=== PATIENT | male | born 1950 | race Caucasian/White ===

== ENCOUNTER 2019-01-17 06:39 | Inpatient (IN) | payer BC ==
--- NOTE | 2019-01-17 07:45 | PDOC ---
History of Present Illness - General Chief Complaint: Pain, Acute Stated Complaint: ABD PAIN Time Seen by Provider: 01/17/19 07:23 - History of Present Illness Initial Comments: Mr. Weaver is a 68 y/o male with PMH significant for HLD, DM, HTN, AAA (3.5 cm) , extensive ETOH and smoking, lumbar stenosis, presenting today with abdominal pain that started at 8pm yesterday. Reports nausea and several episodes of vomiting. Reports associated back pain. Describes the pain as sharp and intermittent. Denies dysuria/hematuria. Reports diarrhea, but denies blood in the stool. Denies chest pain/shortness of breath. Denies headache/dizziness. Past History - Past Medical History Allergies/Adverse Reactions: Allergies Allergy/AdvReac Type Severity Reaction Status Date / Time No Known Allergies Allergy Verified 01/17/19 06:52 Home Medications: Ambulatory Orders Atorvastatin Ca [Lipitor -] 20 mg PO HS tablet 09/10/13 Sitagliptin Phos/Metformin HCl [Janumet 50-1,000 Mg Tablet] 1 each PO BID tablet 09/10/13 Amlodipine Besylate/Benazepril [Amlodipine-Benazepril 10-20 mg] 1 each PO DAILY 01/17/19 Linaclotide [Linzess] 145 mcg PO DAILY 01/17/19 Sildenafil Citrate 100 mg PO PRN PRN 01/17/19 Valsartan/Hydrochlorothiazide [Valsartan-Hctz 160-12.5 mg Tab] 1 each PO DAILY 01/17/19 COPD: No Diabetes: Yes HTN: Yes - Psycho Social/Smoking Cessation Hx Smoking History: Never smoked Review of Systems - Review of Systems Comments:: GENERAL/CONSTITUTIONAL: No fever or chills. No weakness._ HEAD, EYES, EARS, NOSE AND THROAT: No change in vision. No change in hearing. No sore throat._ CARDIOVASCULAR: No chest pain or shortness of breath_ RESPIRATORY: Denies cough, hemoptysis_ GASTROINTESTINAL: Reports nausea, vomiting, and diarrhea. No constipation. Reports abdominal pain. GENITOURINARY: No dysuria, frequency, or change in urination._ MUSCULOSKELETAL: No joint or muscle swelling or pain. Reports lumbar paraspinal back pain. SKIN: No rash_ NEUROLOGIC: No headache, vertigo, loss of consciousness, or change in strength/ sensation._ ENDOCRINE: No increased thirst. No abnormal weight change_ HEMATOLOGIC/LYMPHATIC: No anemia, easy bleeding, or history of blood clots._ ALLERGIC/IMMUNOLOGIC: No hives or skin allergy._ *Physical Exam - Vital Signs Last Vital Signs Temp Pulse Resp BP Pulse Ox 98.5 F 116 H 20 153/110 H 100 01/17/19 06:52 01/17/19 07:38 01/17/19 07:38 01/17/19 07:38 01/17/19 07:38 - Physical Exam Comments: GENERAL: Awake, alert, and oriented to person/place/time, in no acute distress_ HEAD: No signs of trauma, normocephalic, atraumatic _ EYES: PERRLA, EOMI, sclera anicteric, conjunctiva clear_ ENT: Hearing grossly normal, nares patent, oropharynx clear without exudates. No uvular deviation. Moist mucosa_ NECK: Normal ROM, supple, no lymphadenopathy, JVD, or masses_ LUNGS: No distress, speaks in full sentences, clear to auscultation bilaterally _ HEART: Regular rate and rhythm, normal S1 and S2, no murmurs appreciated, peripheral pulses normal and equal bilaterally._ ABDOMEN: Soft, protuberant, diffuse TTP worse in the LUQ and LLQ. No guarding, no rebound. No masses appreciated. BACK: No midline TTP. No CVA tenderness. EXTREMITIES: Normal inspection, Normal range of motion, no edema. No clubbing or cyanosis_ NEUROLOGICAL: Cranial nerves II through XII grossly intact. Normal speech, normal gait, no focal sensorimotor deficits _ SKIN: Warm, Dry, normal turgor, no rashes or lesions noted_ ED Treatment Course - LABORATORY CBC & Chemistry Diagram: 01/17/19 07:53 01/17/19 07:53 Medical Decision Making - Medical Decision Making 01/17/19 07:43 68M hx of HTN HLD DM AAA ETOH tobacco lumbar stenosis presenting with abdominal pain and back pain that started at 8pm yesterday. -CBC, CMP, lipase -UA/UC -trop, EKG, CXR -pepcid/maalox -IV tylenol, zofran 01/17/19 08:00 EKG shows sinus tachycardia, 116 bpm, right axis deviation, no ST elevation/ depression, QTc 436. 01/17/19 10:27 Pt reassessed. Reports that pain had improved slightly but now returned. Reports gas and pressure like discomfort throughout the abdomen. Labs reviewed, WBC elevated at 15. -CT abd/pelv 01/17/19 12:16 CXR shows no acute intrathoracic process. CT abd/pelv shows development of diffuse small bowel dilatation as well as dilatation of the right colon, choledocholithiasis, and cholelithiasis. Patient reassessed. Reports that he was able to pass gas and that his pain has improved. Still has RUQ TTP. -US RUQ 01/17/19 15:56 RUQ US is limited but shows cholelithiasis and probable diffuse fatty infiltration of the liver. D/w Dr. Rosario (surgery). Given no hx of abdominal surgery, likely not a mechanical obstruction. Gallbladder does not appear inflammed, but given continued pain, Dr. Rosario's recommendations are rocephin and flagyl, HIDA scan , GI consult, surgery consult, and admission. 01/17/19 16:16 D/w Dr. Rob who accepts the patient for admission. Discharge - Discharge Information Problems reviewed: Yes Clinical Impression/Diagnosis: RUQ pain Condition: Stable - Admission Yes - Follow up/Referral - Patient Discharge Instructions - Post Discharge Activity
--- NOTE | 2019-01-17 07:48 | PDOC ---
Attending Attestation - Resident Resident Name: Ángel Tovar - ED Attending Attestation I have performed the following: I have examined & evaluated the patient, The case was reviewed & discussed with the resident, I agree w/resident's findings & plan, Exceptions are as noted - HPI HPI: 01/17/19 07:46 68y M hx of hl, dm, htn, incidendental AAA (3.5cm), hx of etoh abuse (dry for past 5 years), presents with abdominal pain that started last night that is described as sharp and intermittent associated with several episodes of nonbilious nonbloody vomiting. The patient notes that the pain also seems to radiate to the back there is no associated chest pain, shortness of breath, fever, chills, diarrhea, melena, BPR, dysuria. The patient does endorse having this pain in the past intermittently several times a month and was recently worked up for this with an MRI of the abdomen by his primary care doctor that revealed an incidental 3.5 cm AAA. The patient notes that sometimes these episodes come with eating certain foods. He notes that although this pain is similar to the previous episodes this is more severe than usual. Social: prior smoking and etoh (non in 5 years) PMD [place] Exam: GENERAL: The patient is awake, alert, and fully oriented, Nontoxic - in no acute distress. HEAD: Normocephalic, atraumatic. EYES: extraocular movements intact, sclera anicteric, conjunctiva clear. ENT: Normal voice, Moist mucous membranes. NECK: Normal range of motion, supple LUNGS: Breath sounds equal, clear to auscultation bilaterally. No wheezes, no rhonchi, no rales. HEART: tachycardic, normal S1 and S2 without murmur, rub or gallop. ABDOMEN: Soft, slightly distended abdomen, mild diffuse tenderness especially in the midline and epigastrium, no rebound or guarding, no CVA tenderness. No pain at McBurney's point and negative Sadler's. No signs of ecchymosis EXTREMITIES: Normal range of motion, no edema. NEUROLOGICAL: No facial assymetry, Normal speech, PSYCH: Normal mood, normal affect. SKIN: Warm, Dry, normal turgor, Differential for the patient's pain includes but is not limited to pancreatitis , gastritis, acid reflux, diverticulitis. Considered AAA as possible cause however he did have a recent MRI that showed only slight enlargement of his aorta. We will give the patient Pepcid, Maalox, Tylenol, fluids Will reassess consider possible imaging if his pain is not significantly improved - Physicial Exam PE: 01/17/19 14:59 see above - Medical Decision Making 01/17/19 10:11 The patient's lab work was reviewed there is a leukocytosis noted however the rest of his lab work was unremarkable including urine. Will obtain 01/17/19 15:[address] noted fo suggestion of possible obstruction +gall stones, unclear cause of his pain as pain is fairly diffuse but he does have RUQ ttp - will ishan armando anticipate admission for [facility] as pt is vomiting here. Heart Score/ECG Review - ECG Impressions Comment:: 01/17/19 08:20 Twelve-lead EKG was performed and reviewed by me. There is normal sinus rhythm with a rate of 116 Right superior axis deviation PVCs present Impression sinus tachycardia
[2019-01-17] MEDS ORDERED: ACETAMINOPHEN 1000 MG/100 ML VIAL (NON FORMULARY) IVPB ONE (07:49)
[2019-01-17] MEDS ORDERED: ACETAMINOPHEN INJECTION 100 ML IVPB ONE (07:58)
[2019-01-17] MEDS ORDERED: MAG HYDROX/AL HYDROX/SIMETH 30 ML UNIT-DOSE CUP PO ONE (07:58)
[2019-01-17] MEDS ORDERED: SODIUM CHLORIDE 0.9% 500 ML INFUS.BAG IV ONE ×2 (07:58→14:37)
[2019-01-17] MEDS ORDERED: FAMOTIDINE 10 MG TABLET PO ONE (07:58)
[2019-01-17] MEDS ORDERED: ONDANSETRON 4 MG/2 ML VIAL IVPB ONE (07:59)
[2019-01-17] MEDS ORDERED: FAMOTIDINE 10 MG TABLET ONE (08:05)
[2019-01-17] MEDS ORDERED: ONDANSETRON 4 MG/2 ML VIAL ONE ×2 (08:06→14:43)
[2019-01-17] MEDS ORDERED: MAG HYDROX/AL HYDROX/SIMETH 30 ML UNIT-DOSE CUP ONE (08:06)
[2019-01-17 08:46] LABS: EPI CELLS 2.2 /HPF (0-5/HPF); HYALINE CASTS 26 /lpf (0-8); PH,URINE 7.5 (5.0-8.0); URINE APPEARANCE CLEAR; URINE BACTERIA 5.1 /hpf (NEGATIVE); URINE BILIRUBIN 1+ (NEGATIVE); URINE COLOR DK YELLOW; URINE GLUCOSE (UA) TRACE (NEGATIVE); URINE KETONE 1+ (NEGATIVE); URINE LEUK ESTERASE TRACE (NEGATIVE); URINE NITRITE NEGATIVE (NEGATIVE); URINE PROTEIN 3+ (NEGATIVE); URINE RBC 4 /hpf (0-4); URINE WBC 1 /hpf (0-5)
[2019-01-17 08:57] LABS: BASO % 0.1 % (0-2.0); EOS % 0.1 % (0-4.5); HEMATOCRIT 45.2 % (35.4-49); HEMOGLOBIN 15.7 GM/dL (11.7-16.9); LYMPH % 6.9 % (8-40); MCHC 34.8 g/dl (32.0-35.9); MEAN CELL VOLUME 89.1 fl (80-96); MEAN PLT VOLUME 8.9 fl (7.5-11.1); MONO % 3.5 % (3.8-10.2); NEUT % 89.4 % (42.8-82.8); PLATELET COUNT 210 K/MM3 (134-434); RBC 5.07 M/mm3 (4.00-5.60)
[2019-01-17 08:59] LABS: ALBUMIN 4.3 g/dl (3.4-5.0); BILIRUBIN,TOTAL 0.6 mg/dL (0.2-1); CALCIUM 9.8 mg/dL (8.5-10.1); CREATININE 1.3 mg/dL (0.55-1.3); POTASSIUM 3.3 mmol/L (3.5-5.1)
--- NOTE | 2019-01-17 09:59 | EKG ---
Test Reason : Blood Pressure : / mmHG Vent. Rate : 116 BPM Atrial Rate : 116 BPM P-R Int : 160 ms QRS Dur : 112 ms QT Int : 314 ms P-R-T Axes : 002 246 -09 degrees QTc Int : 436 ms SINUS TACHYCARDIA WITH OCCASIONAL PREMATURE VENTRICULAR COMPLEXES NONSPECIFIC T WAVE ABNORMALITY ABNORMAL ECG WHEN COMPARED WITH ECG OF 04-JUL-2009 17:57, PREMATURE VENTRICULAR COMPLEXES ARE NOW PRESENT Confirmed by OTIS WILLAMS MD ([id number]) on 01/17/2019 9:59:14 AM Referred By: Confirmed By:OTIS WILLAMS MD
[2019-01-17] MEDS ORDERED: morphine CARPU-JECT 4 MG/1 ML DISP.SYRIN IVPUSH ONE (10:33)
[2019-01-17] MEDS ORDERED: morphine SULFATE 4 MG/ML VIAL ONE (10:34)
[2019-01-17] MEDS ORDERED: ONDANSETRON 4 MG/2 ML VIAL IVPUSH ONE (14:37)
[2019-01-17] MEDS ORDERED: CEFTRIAXONE 1 GM in DEXTROSE 5%-WATER - 100 ML IVPB ONE (15:54)
[2019-01-17] MEDS ORDERED: CEFTRIAXONE 1 GM/50 ML BAG ONE (16:17)
--- NOTE | 2019-01-17 16:54 | CONSULT ---
- Consultation REQUESTING PROVIDER: CONSULT REQUEST: We have been asked to surgically evaluate this patient for gallbladder disease. PCP:Dc Rob HISTORY OF PRESENT ILLNESS: The patient is a 68 yo male with a history of chronic upper abd/back pain over the past years. He was seen by his PMD and sent for radiograhic studies this past Thursday. He developed worsening pain yesterday after having lunch, his symptoms progressed and he came to the ER for evaluation. He made himself vomited last night. He also has a history of gas/ constipation and takes Linzess to relieve his symptoms. He took it last PM because he didn't have a bowel movement yesterday. He just had a BM(watery) now in the ER and feels better. He denies any fever, chills, dysuria. PMHx: HTM, h/o ETOH abuse (stopped 7 years ago) PSHx: denies Social HX: stopped smoking 7 years ago Home Medications Medication Instructions Recorded Atorvastatin Ca [Lipitor -] 20 mg PO HS tablet 09/10/13 Sitagliptin Phos/Metformin HCl 1 each PO BID tablet 09/10/13 [Janumet 50-1,000 Mg Tablet] Amlodipine Besylate/Benazepril 1 each PO DAILY 01/17/19 [Amlodipine-Benazepril 10-20 mg] Linaclotide [Linzess] 145 mcg PO DAILY 01/17/19 Sildenafil Citrate 100 mg PO PRN PRN 01/17/19 Valsartan/Hydrochlorothiazide 1 each PO DAILY 01/17/19 [Valsartan-Hctz 160-12.5 mg Tab] Allergies Allergy/AdvReac Type Severity Reaction Status Date / Time No Known Allergies Allergy Verified 01/17/19 06:52 REVIEW OF SYSTEMS: CONSTITUTIONAL: Absent: fever, chills CARDIOVASCULAR: Absent: chest pain, palpitations RESPIRATORY: Absent: cough, shortness of breath GASTROINTESTINAL: Present: abdominal pain, abdominal distension, nausea, vomiting GENITOURINARY: Absent: dysuria MUSCULOSKELETAL: Absent: lower back pain, h/o left shoulder pain(had steriod injection) h/o right knee pain, right thigh pain HEMATOLOGIC/IMMUNOLOGIC: Absent: easy bleeding, easy bruising NEUROLOGIC: Absent: focal weakness, paresthesias bladder or bowel incontinence PHYSICAL EXAM: GENERAL: Awake, alert, and fully oriented, in no acute distress. HEAD: Normal with no signs of trauma. EYES: PERRL, sclera anicteric, conjunctiva clear. LUNGS: Clear to auscultation bilat anteriorly. No wheezes, and no crackles. HEART: Regular rhythm, mild tachycardic ABDOMEN: Soft, mild epigastric tenderness with deep palpation, otherwise non- tender. reducible umbilical hernia LOWER EXTREMITIES: 2+ pulses, warm, well-perfused. NEUROLOGICAL: Normal speech, gait steady, 5/5 dorsi/plantar flexion b/l PSYCH: Cooperative. Good eye contact. Appropriate mood and affect. Vital Signs Temperature 98.0 F 01/17/19 13:21 Pulse Rate 116 H 01/17/19 13:21 Respiratory Rate 18 01/17/19 13:21 Blood Pressure 145/116 H 01/17/19 13:21 O2 Sat by Pulse Oximetry (%) 97 01/17/19 13:21 Lab Results WBC 15.0 K/mm3 (4.0-10.0) H 01/17/19 07:53 RBC 5.07 M/mm3 (4.00-5.60) 01/17/19 07:53 Hgb 15.7 GM/dL (11.7-16.9) 01/17/19 07:53 Hct 45.2 % (35.4-49) 01/17/19 07:53 MCV 89.1 fl (80-96) 01/17/19 07:53 MCHC 34.8 g/dl (32.0-35.9) 01/17/19 07:53 RDW 14.0 % (11.9-15.9) 01/17/19 07:53 Plt Count 210 K/MM3 (134-434) 01/17/19 07:53 Sodium 139 mmol/L (136-145) 01/17/19 07:53 Potassium 3.3 mmol/L (3.5-5.1) L 01/17/19 07:53 Chloride 98 mmol/L (98-107) 01/17/19 07:53 Carbon Dioxide 32 mmol/L (21-32) 01/17/19 07:53 Anion Gap 8 MMOL/L (8-16) 01/17/19 07:53 BUN 15.0 mg/dL (7-18) 01/17/19 07:53 Creatinine 1.3 mg/dL (0.55-1.3) 01/17/19 07:53 Random Glucose 195 mg/dL (74-106) H 01/17/19 07:53 Calcium 9.8 mg/dL (8.5-10.1) 01/17/19 07:53 Laboratory Tests 01/17/19 01/17/19 01/17/19 07:53 07:53 08:12 Total Bilirubin 0.6 AST 33 ALT 38 Alkaline Phosphatase 112 CK-MB (CK-2) 8.0 H Troponin I 0.05 Total Protein 8.0 Albumin 4.3 Lipase 138 Urine Color Dk yellow Urine Appearance Clear Urine pH 7.5 Ur Specific [place] 1.034 Urine Protein 3+ H Urine Glucose (UA) Trace Urine Ketones 1+ H Urine Blood Negative Urine Nitrite Negative Urine Bilirubin 1+ H Urine Urobilinogen 1.0 Ur Leukocyte Esterase Trace Urine WBC (Auto) 1 Urine RBC (Auto) 4 Urine Casts (Auto) 26 U Pathogenic Cast Auto Few present U Epithel Cells (Auto) 2.2 Urine Bacteria (Auto) 5.1 CT scan 01/14(oral contrast only)CBD stone without duct dilatation, fecal retention CT scan 01/17(oral contrast): CBD stone without hepatic dilatation, dilated SB and right colon(non-obstructive) Aorta US 01/14: proximal aorta not seen, distal aorta 2.9cm 01/17 gallstones , without duct dilatation Problem List - Problems (1) RUQ pain Assessment/Plan: Pt with gallstone on Ultrasound and clinical findings of RUQ/epigatric pain. No fevers, but with leukocytosis and normal LFTS. Mild tachycardia, stable BP. D/w Dr. Rosario and recommend HIDA to r/o acute cholecystitis. His previous CT scan over the past several days have revealed a possible CBD stone, he has normal LFTS. Recommend a GI consult, trend his labs daily cbc, chem, LFTs and NPO until his GB as a possible source of leukocystosis is ruled out. IV abx for his wbc elevation(given Iv rocephin and flagyl), possible Right basilar infiltrate on CT scan as a source if his HIDA is negative. Surgery to follow the patient. Code(s): R10.11 - RIGHT UPPER QUADRANT PAIN
[2019-01-17 17:32] VITALS: BMI 33.5
--- NOTE | 2019-01-18 08:09 | PN ---
Progress Note (short form) - Note Progress Note: Surgery Patient being followed for RUQ pain r/o acute cholecystitis. Patient seen and examined at bedside with no complaints. He has been OOB and ambulating. He denies any abdominal pain. He is NPO and denies any CP, SOB, N/V, fever or chills. Vital Signs Temp 98.8 F 01/18/19 06:40 Pulse 85 01/18/19 06:40 Resp 20 01/18/19 06:40 BP 126/84 01/18/19 06:40 Pulse Ox 93 L 01/17/19 21:00 Intake & Output 01/17/19 01/17/19 01/18/19 11:59 23:59 11:59 Intake Total 210 Balance 210 Weight 205 lb 208 lb 1.6 oz Intake: IV 10 LAC 10 Oral 200 Other: Voiding Method Urinal Bowel Movement No No Height 5 ft 9 in 5 ft 6 in Body Mass Index (BMI) 30.2 33.5 Weight Measurement Method Built in [facility] CBC, BMP 01/17/19 07:53 01/17/19 07:53 PE: A&Ox3, NAD Unlabored resp on RA ABD: obese, soft, NT, ND, no guarding or rebound tenderness. no palpable masses. Problem List - Problems (1) RUQ pain Assessment/Plan: 68 yo with RUQ pain r/o acute cholecystitis currently stable. -f/u HIDA scan -NPO -IFV -DVT and GI prophylaxis -trend LFTs and labs -IV ABX per ID -surgery to follow Code(s): R10.11 - RIGHT UPPER QUADRANT PAIN
--- NOTE | 2019-01-18 10:10 | HP ---
Admitting History and Physical - Primary Care Physician PCP: Dc Rob - Admission Chief Complaint: abd pain History of Present Illness: History of Present Illness Initial Comments: Mr. Weaver is a 68 y/o male with PMH significant for HLD, DM, HTN, AAA (3.5 cm) , extensive ETOH and smoking, lumbar stenosis, presenting today with abdominal pain that started at 8pm yesterday. Reports nausea and several episodes of vomiting. Reports associated back pain. Describes the pain as sharp and intermittent. Denies dysuria/hematuria. Reports diarrhea, but denies blood in the stool. Denies chest pain/shortness of breath. Denies headache/dizziness. History Source: Patient Limitations to Obtaining History: No Limitations - Past Medical History Cardiovascular: Yes: HTN - Smoking History Smoking history: Never smoked - Alcohol/Substance Use Hx Alcohol Use: No Home Medications - Allergies Allergies/Adverse Reactions: Allergies Allergy/AdvReac Type Severity Reaction Status Date / Time No Known Allergies Allergy Verified 01/17/19 06:52 - Home Medications Home Medications: Ambulatory Orders Atorvastatin Ca [Lipitor -] 20 mg PO HS tablet 09/10/13 Sitagliptin Phos/Metformin HCl [Janumet 50-1,000 Mg Tablet] 1 each PO BID tablet 09/10/13 Amlodipine Besylate/Benazepril [Amlodipine-Benazepril 10-20 mg] 1 each PO DAILY 01/17/19 Linaclotide [Linzess] 145 mcg PO DAILY 01/17/19 Sildenafil Citrate 100 mg PO PRN PRN 01/17/19 Valsartan/Hydrochlorothiazide [Valsartan-Hctz 160-12.5 mg Tab] 1 each PO DAILY 01/17/19 Physical Examination Vital Signs: Vital Signs Temperature 98.8 F 01/18/19 09:39 Pulse Rate 115 H 01/18/19 09:39 Respiratory Rate 20 01/18/19 09:39 Blood Pressure 161/97 01/18/19 09:39 O2 Sat by Pulse Oximetry (%) 93 L 01/17/19 21:00 Labs: CBC, BMP 01/17/19 07:53 01/17/19 07:53
[2019-01-18] MEDS ORDERED: CEFTRIAXONE 1 GM in DEXTROSE 5%-WATER - 50 ML IVPB SCH ×2 (10:30→10:33)
[2019-01-18] MEDS ORDERED: cefTRIAXone SODIUM 1 GM VIAL ONE (11:53)
[2019-01-18] MEDS ORDERED: DEXTROSE 5%-WATER - 50 ML IVPB ONE (11:53)
[2019-01-18] MEDS: D5-1/2NS+20 MEQ KCL - 20 MEQ/1,000 ML INFUS.BAG IV SCH ×2 (12:00→22:51)
[2019-01-18] MEDS: CEFTRIAXONE 1 GM in DEXTROSE 5%-WATER - 50 ML IVPB SCH (12:01)
--- NOTE | 2019-01-18 13:33 | CONS ---
GASTROINTESTINAL CONSULTATION DATE OF CONSULTATION: DATE OF DICTATION: 01/18/2019 HISTORY OF PRESENT ILLNESS: The patient is a 68-year-old man with a past medical history of hypertension and chronic back pain. He presented to the emergency room, after having midabdominal pain which began on Thursday with associated nausea, vomiting, and watery stools. He denies any blood in his stool, fevers, chills, new medications, culprit foods or travel. He states he has experienced constipation and bloating in the past and takes Linzess to relieve his symptoms. He has never had an endoscopy or colonoscopy in the past. PAST MEDICAL AND SURGICAL HISTORY: As listed in the HPI. ALLERGIES: No known drug allergies. SOCIAL HISTORY: He smoked 10 years ago. Currently, no alcohol or smoking. No intravenous drug abuse. REVIEW OF SYSTEMS: As per the HPI. FAMILY HISTORY: Significant for mother with breast or uterine cancer. HOME MEDICATIONS: Reviewed. Include Lipitor, Janumet, amlodipine, benazepril, Linzess, Viagra, and valsartan-hydrochlorothiazide. PHYSICAL EXAMINATION: Vital Signs: Temperature 98, pulse 115, blood pressure /97, respiratory rate 12, oxygen saturation 93% on room air. General: In no acute distress. HEENT: Anicteric sclera. Cardiovascular: S1, S2. Regular rate and rhythm. Lungs: Bilaterally clear to auscultation. Abdomen: Tympanitic, nontender with bowel sounds. Extremities: No edema. LABORATORIES: White blood cell count 15, hemoglobin 14 and hematocrit 45, MCV 89, platelet count 210. Sodium 139, potassium 3.3, BUN 15, creatinine 1.3. Total bilirubin 0.6, AST 33, ALT 38, alkaline phosphatase 112. Troponin is negative. Lipase 138. Urine: Protein 3+, ketone 1+, bilirubin 1+. Cultures are pending. He had a gallbladder scan which has not resulted yet. He had an abdomen and pelvis CT scan which revealed right posterior basilar infiltrate; development of diffuse small-bowel dilation is noted, as well as dilation of the right colon, non-obstructive however, correlation with close followup is suggested; also with choledocholithiasis; a 2-3-mm calculus is seen in the lower third of the common bile duct; there is no definitive biliary tract dilation; cholelithiasis is also noted; mild fusiform aneurysmal dilation of the suprarenal aorta and partially-imaged descending thoracic aorta with a 3.4-cm diameter. IMPRESSION: 1. Choledocholithiasis. 2. Cholelithiasis. His current pain syndrome may be secondary to a biliary etiology. Liver tests are within normal limits, so I doubt the stones are causing an obstruction. RECOMMENDATIONS: Follow up HIDA scan results. Trend LFTs daily while hospitalized. Continue antibiotics as your are doing. Will contact Dr. Padilla for potential ERCP. This is not an urgent procedure, considering he is not obstructed and not febrile. Diet as per Surgery. Will follow. DO ANGEL MONGE/[id number]
[2019-01-18 16:13] LABS: BASO % 0.1 % (0-2.0); EOS % 0.4 % (0-4.5); HEMATOCRIT 41.4 % (35.4-49); LYMPH % 10.9 % (8-40); MCH 30.7 pg (25.7-33.7); MCHC 33.8 g/dl (32.0-35.9); MEAN CELL VOLUME 90.9 fl (80-96); MEAN PLT VOLUME 8.5 fl (7.5-11.1); MONO % 5.6 % (3.8-10.2); PLATELET COUNT 179 K/MM3 (134-434); RBC 4.56 M/mm3 (4.00-5.60); RDW 14.1 % (11.9-15.9); WHITE BLOOD COUNT 18.6 K/mm3 (4.0-10.0)
[2019-01-18 17:34] LABS: ALBUMIN 3.3 g/dl (3.4-5.0); BILIRUBIN,TOTAL 0.8 mg/dL (0.2-1); BLOOD UREA NITROGEN 24.2 mg/dL (7-18); CALCIUM 8.1 mg/dL (8.5-10.1); POTASSIUM 3.4 mmol/L (3.5-5.1); TOT PROT 6.3 g/dl (6.4-8.2)
--- NOTE | 2019-01-18 17:34 | PN ---
Progress Note (short form) - Note Progress Note: GI Consent Note: I was asked by Dr Sanchez to evaluate Cesar for an ERCP. His CT scan was reviewed and reveals a 2-3mm stone in the distal CBD. I have advised an ERCP with sphincterotomy to extract the stones or to place a stent if necessary. I have informed him of the potential for such complications as hemorrhage, perforation and ERCP induced pancreatitis leading to multiorgan failure ,N/V and severe pain. He has signed an informed consent. I have advised an MRCP to confirm or exclude the presence of CBD stones but he tells me that he has claustrophobia and cannot tolerate a closed MRI. I have canceled it and made arrangements to do the ERCP tomorrow. He is already receiving antibiotics. Given his diabetes an Indocin suppository will not be given as the renal risks outweigh the benefits of pancreatitis protection. Problem List - Problems (1) Choledocholithiasis with cholecystitis Code(s): K80.40 - CALCULUS OF BILE DUCT W CHOLECYSTITIS, UNSP, W/O OBSTRUCTION (2) Diabetes mellitus Code(s): E11.9 - TYPE 2 DIABETES MELLITUS WITHOUT COMPLICATIONS (3) Hypertension Code(s): I10 - ESSENTIAL (PRIMARY) HYPERTENSION (4) RUQ pain Code(s): R10.11 - RIGHT UPPER QUADRANT PAIN
[2019-01-19] MEDS: D5-1/2NS+20 MEQ KCL - 20 MEQ/1,000 ML INFUS.BAG IV SCH (06:15)
[2019-01-19 08:21] LABS: BASO % 0.2 % (0-2.0); EOS % 1.3 % (0-4.5); HEMATOCRIT 38.4 % (35.4-49); HEMOGLOBIN 13.2 GM/dL (11.7-16.9); LYMPH % 11.5 % (8-40); MCH 30.8 pg (25.7-33.7); MCHC 34.2 g/dl (32.0-35.9); MEAN PLT VOLUME 8.8 fl (7.5-11.1); MONO % 7.3 % (3.8-10.2); NEUT % 79.7 % (42.8-82.8); PLATELET COUNT 156 K/MM3 (134-434); RBC 4.27 M/mm3 (4.00-5.60); RDW 14.2 % (11.9-15.9); WHITE BLOOD COUNT 14.1 K/mm3 (4.0-10.0)
[2019-01-19 08:27] LABS: INR 1.18 (0.83-1.09)
[2019-01-19 08:39] LABS: AMYLASE 52 U/L (25-115); LIPASE 111 U/L (73-393)
[2019-01-19 08:42] LABS: ALBUMIN 2.9 g/dl (3.4-5.0); BILIRUBIN,TOTAL 0.8 mg/dL (0.2-1); BLOOD UREA NITROGEN 17.1 mg/dL (7-18); CALCIUM 7.8 mg/dL (8.5-10.1); POTASSIUM 3.3 mmol/L (3.5-5.1); TOT PROT 5.5 g/dl (6.4-8.2)
--- NOTE | 2019-01-19 09:07 | PN ---
Progress Note (short form) - Note Progress Note: SURGERY 68yo M h/o choledocolithiasis, pt seen and examined at bedside. Pt is scheduled for an ERCP today. Pt currently NPO, continues to complain of some RUQ pain. Last Vital Signs Temp Pulse Resp BP Pulse Ox 98.2 F 86 18 130/96 97 01/19/19 08:08 01/19/19 08:08 01/19/19 08:08 01/19/19 08:08 01/18/19 21:00 CBC, BMP 01/19/19 06:50 01/19/19 06:50 PE; Gen: A&O x3 Resp: breathing comfortably Abd: RUQ tenderness, nondistended, soft. Ext: no edema Problem List - Problems (1) Choledocholithiasis with cholecystitis Assessment/Plan: Plan -will follow up with pt after ERCP, and evaluate for inpatient vs outpatient cholecystectomy -trend LFTs, wbc -DVT ppx -GI ppx Will follow Code(s): K80.40 - CALCULUS OF BILE DUCT W CHOLECYSTITIS, UNSP, W/O OBSTRUCTION
--- NOTE | 2019-01-19 10:16 | PN ---
Progress Note (short form) - Note Progress Note: Pt examined has slight abd pain no nausea NPO for ERCP Vital Signs - 24 hr 01/18/19 01/18/19 01/18/19 14:23 20:47 21:00 Temperature 99.1 F 99.5 F Pulse Rate 116 H 110 H Respiratory 20 20 Rate Blood Pressure 151/96 138/76 O2 Sat by Pulse 97 Oximetry (%) 01/19/19 08:08 Temperature 98.2 F Pulse Rate 86 Respiratory 18 Rate Blood Pressure 130/96 O2 Sat by Pulse Oximetry (%) Current Medications Generic Name Dose Route Start Last Admin Trade Name Freq PRN Reason Stop Dose Admin Amlodipine Besylate 10 mg 01/19/19 10:00 Norvasc - PO DAILY TAYLER Potassium Chloride/Dextrose/Sod Cl 20 meq in 1,000 mls @ 100 mls/hr 01/18/19 10:15 01/19/19 06:15 D5-1/2ns+20 Meq Kcl - IV 100 mls/hr ASDIR TAYLER Administration Metronidazole 500 mg in 100 mls @ 100 mls/hr 01/18/19 10:30 01/19/19 02:38 Flagyl 500mg Premixed Ivpb - IVPB 100 mls/hr Q8H-IV TAYLER Administration Ceftriaxone Sodium 1 gm/ 50 mls @ 100 mls/hr 01/18/19 10:45 01/18/19 12:01 Dextrose IVPB 100 mls/hr DAILY TAYLER Administration Morphine Sulfate 2 mg 01/18/19 10:09 Morphine Sulfate IVPUSH Q4H PRN PAIN LEVEL 6-10 Valsartan 160 mg 01/19/19 10:00 Diovan - PO DAILY TAYLER Laboratory Results - last 24 hr 01/18/19 01/18/19 01/19/19 10:08 15:55 06:50 WBC 18.6 H 14.1 H RBC 4.56 4.27 Hgb 14.0 13.2 Hct 41.4 38.4 MCV 90.9 90.0 MCH 30.7 30.8 MCHC 33.8 34.2 RDW 14.1 14.2 Plt Count 179 156 MPV 8.5 8.8 Absolute Neuts (auto) 15.4 H 11.2 H Neutrophils % 83.0 H 79.7 Lymphocytes % 10.9 D 11.5 Monocytes % 5.6 7.3 Eosinophils % 0.4 D 1.3 D Basophils % 0.1 0.2 Nucleated RBC % 0 0 PT with INR INR Sodium 137 Potassium 3.4 L Chloride 103 Carbon Dioxide 30 Anion Gap 4 L BUN 24.2 H Creatinine 1.0 Est GFR (CKD-EPI)AfAm 90.50 Est GFR (CKD-EPI)NonAf 78.08 Random Glucose 122 H Calcium 8.1 L Total Bilirubin 0.8 AST 31 ALT 33 Alkaline Phosphatase 78 Total Protein 6.3 L Albumin 3.3 L Total Amylase Lipase 01/19/19 01/19/19 01/19/19 06:50 06:50 06:50 WBC RBC Hgb Hct MCV MCH MCHC RDW Plt Count MPV Absolute Neuts (auto) Neutrophils % Lymphocytes % Monocytes % Eosinophils % Basophils % Nucleated RBC % PT with INR 14.00 H INR 1.18 H Sodium 137 Potassium 3.3 L Chloride 103 Carbon Dioxide 30 Anion Gap 4 L BUN 17.1 Creatinine 1.0 Est GFR (CKD-EPI)AfAm 90.50 Est GFR (CKD-EPI)NonAf 78.08 Random Glucose 108 H Calcium 7.8 L Total Bilirubin 0.8 AST 29 ALT 27 Alkaline Phosphatase 70 Total Protein 5.5 L Albumin 2.9 L Total Amylase 52 Lipase 111 S1 S2 RRR Lungs clear Abd- soft, tender right upper quadrant, ND No edema PLAN NPO IV fluids Replace potassium iv antibiotics LFT not elevated WBC trending down for ERCP today Problem List - Problems (1) Choledocholithiasis with cholecystitis Code(s): K80.40 - CALCULUS OF BILE DUCT W CHOLECYSTITIS, UNSP, W/O OBSTRUCTION (2) Diabetes mellitus Code(s): E11.9 - TYPE 2 DIABETES MELLITUS WITHOUT COMPLICATIONS (3) Hypertension Code(s): I10 - ESSENTIAL (PRIMARY) HYPERTENSION (4) RUQ pain Code(s): R10.11 - RIGHT UPPER QUADRANT PAIN
[2019-01-19] MEDS ORDERED: KCL 10 MEQ IVPB 10 MEQ/100 ML INFUS.BAG IVPB SCH ×2 (10:30→16:00)
[2019-01-19] MEDS: amLODIPine BESYLATE 10 MG TABLET (FP) PO SCH (11:09)
[2019-01-19] MEDS: VALSARTAN 160 MG TABLET (UD) PO SCH (11:10)
[2019-01-19] MEDS ORDERED: cefTRIAXone SODIUM 1 GM VIAL ONE (11:24)
[2019-01-19] MEDS ORDERED: DEXTROSE 5%-WATER - 50 ML IVPB ONE (11:24)
[2019-01-19] MEDS: CEFTRIAXONE 1 GM in DEXTROSE 5%-WATER - 50 ML IVPB SCH (11:47)
[2019-01-19] MEDS ORDERED: IOHEXOL 300 MG/ML INFUS..BTL IJ ONE (12:33)
--- NOTE | 2019-01-19 13:57 | PN ---
Progress Note (short form) - Note Progress Note: GI Procedure NOte: Please see ERCP report. 4 stones were removed from the distal CBD but the largest 5th stone could not be extracted so a 7Fr x4cm length double pigtail stent was inserted. I discussed the case with Dr Rosario. Problem List - Problems (1) Choledocholithiasis with cholecystitis Code(s): K80.40 - CALCULUS OF BILE DUCT W CHOLECYSTITIS, UNSP, W/O OBSTRUCTION (2) Diabetes mellitus Code(s): E11.9 - TYPE 2 DIABETES MELLITUS WITHOUT COMPLICATIONS (3) Hypertension Code(s): I10 - ESSENTIAL (PRIMARY) HYPERTENSION (4) RUQ pain Code(s): R10.11 - RIGHT UPPER QUADRANT PAIN
[2019-01-19] MEDS ORDERED: LACTATED RINGERS SOLUTION 1,000 ML/1,000 ML INFUS.BAG IV SCH ×2 (14:00→20:00)
--- NOTE | 2019-01-19 14:40 | SPA.PREOP ---
- PRE-OP NOTE Dx: Cholecystitis/lithiasis/chledocholithiasis; s/p ERCP 01/19: 4 stones extracted. 5th stone could not...7Fr x4cm double pigtail stent deployed Planned Procedure: Laprascopic Cholecystectomy, possible open Surgeon: Asa Rosario Last Vital Signs Temp Pulse Resp BP Pulse Ox 99.1 F 102 H 20 143/85 97 01/19/19 09:00 01/19/19 09:00 01/19/19 09:00 01/19/19 09:00 01/18/19 21:00 Lab Results WBC 14.1 K/mm3 (4.0-10.0) H 01/19/19 06:50 RBC 4.27 M/mm3 (4.00-5.60) 01/19/19 06:50 Hgb 13.2 GM/dL (11.7-16.9) 01/19/19 06:50 Hct 38.4 % (35.4-49) 01/19/19 06:50 MCV 90.0 fl (80-96) 01/19/19 06:50 MCHC 34.2 g/dl (32.0-35.9) 01/19/19 06:50 RDW 14.2 % (11.9-15.9) 01/19/19 06:50 Plt Count 156 K/MM3 (134-434) 01/19/19 06:50 Sodium 137 mmol/L (136-145) 01/19/19 06:50 Potassium 3.3 mmol/L (3.5-5.1) L 01/19/19 06:50 Chloride 103 mmol/L (98-107) 01/19/19 06:50 Carbon Dioxide 30 mmol/L (21-32) 01/19/19 06:50 Anion Gap 4 MMOL/L (8-16) L 01/19/19 06:50 BUN 17.1 mg/dL (7-18) 01/19/19 06:50 Creatinine 1.0 mg/dL (0.55-1.3) 01/19/19 06:50 Random Glucose 108 mg/dL (74-106) H 01/19/19 06:50 Calcium 7.8 mg/dL (8.5-10.1) L 01/19/19 06:50 INR 1.18 (0.83-1.09) H 01/19/19 06:50 - IMAGING Other: Report Reviewed (ERCP) - ASSESSMENT/PLAN 1. Make NPO after midnight except po meds 2. GI/DVT PPX 3. Medical optimization / clearance 4. f/u Amylase/Lipase in AM --> make sure patient hasn't developed ERCP induced Pancreatitis. If all labs normal will proceed with surgery. If Pancreatitis, will defer surgery until it resolves. 5. Tight glycemic control 6. Consent to be obtained by surgeon after risks, benefits and alternatives discussed with patient and or Health Care Proxy. Problem List - Problems (1) Choledocholithiasis with cholecystitis Code(s): K80.40 - CALCULUS OF BILE DUCT W CHOLECYSTITIS, UNSP, W/O OBSTRUCTION (2) Diabetes mellitus Code(s): E11.9 - TYPE 2 DIABETES MELLITUS WITHOUT COMPLICATIONS (3) Hypertension Code(s): I10 - ESSENTIAL (PRIMARY) HYPERTENSION Visit type - Case Type Case Type: ED Admission - Emergency Emergency Visit: Yes ED Registration Date: 01/17/19 Care time: The patient presented to the Emergency Department on the above date and was hospitalized for further evaluation of their emergent condition. - New patient This patient is new to me today: Yes Date on this admission: 01/19/19
[2019-01-19] MEDS: INSULIN SLIDING SCALE (NOVOLOG) 1 VIAL SQ SCH (17:02)
[2019-01-19] MEDS ORDERED: AMPICILLIN NA/SULBACTAM NA 1.5 GM VIAL ONE (17:12)
[2019-01-19] MEDS ORDERED: SODIUM CHLORIDE 100 ML IVPB ONE (17:12)
[2019-01-19] MEDS: AMPICILLIN NA/SULBACTAM NA 1.5 GM in SODIUM CHLORIDE 100 ML IVPB SCH (17:19)
[2019-01-19] MEDS: MORPHINE SULFATE 2 MG/ML VIAL IVPUSH PRN ×2 (17:24→21:20)
--- NOTE | 2019-01-19 19:23 | CONS ---
DATE OF CONSULTATION: 01/19/2019 REASON FOR CONSULTATION: Cholelithiasis, cholecystitis, choledocholithiasis. BRIEF HISTORY: This is a 68-year-old male who presented to [facility] on January 17 complaining of right upper quadrant abdominal pain and vomiting. He stated he had a history of fatty food intolerance. He was seen and examined by physician assistant passenger locomotive engineer Miriam Landin under my supervision at that time. He was found on CAT scan to have choledocholithiasis and suspicion for acute cholecystitis. At my recommendation he had a HIDA scan which confirmed acute cholecystitis. He had an ultrasound that was unremarkable. He currently is undergoing an ERCP as this is being dictated by Dr. Bismark Padilla. Unable to get a review of systems from patient as he is under anesthesia. PAST MEDICAL HISTORY: Significant for alcohol abuse. SOCIAL HISTORY: Currently negative for alcohol, negative for tobacco. HOME MEDICATIONS: Include Lipitor, metformin, Janumet, Norvasc, linaclotide, sildenafil, valsartan, hydrochlorothiazide. PAST SURGICAL HISTORY: Nil. FAMILY HISTORY: Noncontributory. ASSESSMENT: A 68-year-old male presents with signs and symptoms of acute cholecystitis. He incidentally has choledocholithiasis. He is currently undergoing an endoscopic retrograde cholangiopancreatography. If it is successful at clearing the duct, then would consider cholecystectomy this admission. His white blood cell count is currently elevated at 14,000, and he has been on Rocephin since admission, so his other alternatives will be continued medical management versus percutaneous drainage, but I would consider cholecystectomy this admission if the patient is agreeable. If they are unable to clear the duct, then he may need to be sent to a tertiary care center for his endoscopic retrograde cholangiopancreatography. Will follow the patient as he progresses this admission. DO TYRA FLORENCE/[id number]
[2019-01-20] MEDS ORDERED: AMPICILLIN NA/SULBACTAM NA 1.5 GM VIAL ONE ×3 (01:31→19:42)
[2019-01-20] MEDS ORDERED: SODIUM CHLORIDE 100 ML IVPB ONE ×3 (01:32→19:42)
[2019-01-20] MEDS: MORPHINE SULFATE 2 MG/ML VIAL IVPUSH PRN ×2 (01:33→08:33)
[2019-01-20] MEDS: AMPICILLIN NA/SULBACTAM NA 1.5 GM in SODIUM CHLORIDE 100 ML IVPB SCH ×3 (01:34→19:47)
[2019-01-20] MEDS ORDERED: LACTATED RINGERS SOLUTION 1,000 ML/1,000 ML INFUS.BAG IV SCH ×2 (04:00→08:00)
[2019-01-20] MEDS: INSULIN SLIDING SCALE (NOVOLOG) 1 VIAL SQ SCH (06:18)
[2019-01-20 08:56] LABS: BASO % 0.1 % (0-2.0); EOS % 1.4 % (0-4.5); HEMATOCRIT 37.4 % (35.4-49); HEMOGLOBIN 12.8 GM/dL (11.7-16.9); LYMPH % 9.3 % (8-40); MCH 30.9 pg (25.7-33.7); MCHC 34.3 g/dl (32.0-35.9); MEAN PLT VOLUME 8.3 fl (7.5-11.1); MONO % 5.6 % (3.8-10.2); NEUT % 83.6 % (42.8-82.8); PLATELET COUNT 177 K/MM3 (134-434); RBC 4.16 M/mm3 (4.00-5.60); RDW 13.5 % (11.9-15.9); WHITE BLOOD COUNT 11.8 K/mm3 (4.0-10.0)
[2019-01-20 09:33] LABS: BILIRUBIN,DIRECT 0.2 mg/dL (0.0-0.2); BILIRUBIN,TOTAL 0.8 mg/dL (0.2-1); TOT PROT 5.9 g/dl (6.4-8.2)
[2019-01-20 09:35] LABS: BILIRUBIN,TOTAL 0.7 mg/dL (0.2-1); BLOOD UREA NITROGEN 13.2 mg/dL (7-18); CREATININE 0.9 mg/dL (0.55-1.3); POTASSIUM 3.2 mmol/L (3.5-5.1); TOT PROT 5.9 g/dl (6.4-8.2)
[2019-01-20 09:37] LABS: AMYLASE > 650 U/L (25-115); BILIRUBIN,DIRECT 0.3 mg/dL (0.0-0.2); LIPASE > 1500 U/L (73-393)
[2019-01-20] MEDS: amLODIPine BESYLATE 10 MG TABLET (FP) PO SCH (09:55)
[2019-01-20] MEDS: VALSARTAN 160 MG TABLET (UD) PO SCH (09:55)
--- NOTE | 2019-01-20 10:58 | PN ---
Progress Note (short form) - Note Progress Note: Pt examined has slight abd pain no nausea, vomiting s/p ERCP-- removed 4 stones, unable to remove a large stone Vital Signs - 24 hr 01/19/19 01/19/19 01/19/19 14:00 14:15 14:30 Temperature 99.8 F H Pulse Rate 104 H 91 H 88 Respiratory 20 20 18 Rate Blood Pressure 102/60 150/89 162/100 O2 Sat by Pulse 100 97 97 Oximetry (%) 01/19/19 01/19/19 01/19/19 14:45 15:00 15:06 Temperature 98.4 F Pulse Rate 87 88 88 Respiratory 18 20 18 Rate Blood Pressure 152/85 158/92 152/85 O2 Sat by Pulse 97 97 97 Oximetry (%) 01/19/19 01/19/19 01/20/19 21:00 22:55 02:00 Temperature 98.4 F 99.0 F Pulse Rate 104 H 98 H Respiratory 18 20 18 Rate Blood Pressure 136/70 156/96 O2 Sat by Pulse 97 Oximetry (%) 01/20/19 01/20/19 07:13 09:00 Temperature 98.2 F 98.8 F Pulse Rate 94 H 97 H Respiratory 20 20 Rate Blood Pressure 151/100 144/93 O2 Sat by Pulse Oximetry (%) Current Medications Generic Name Dose Route Start Last Admin Trade Name Freq PRN Reason Stop Dose Admin Amlodipine Besylate 10 mg 01/19/19 10:00 01/20/19 09:55 Norvasc - PO Not Given DAILY TAYLER Metronidazole 500 mg in 100 mls @ 100 mls/hr 01/18/19 10:30 01/20/19 09:56 Flagyl 500mg Premixed Ivpb - IVPB 100 mls/hr Q8H-IV TAYLER Administration Ampicillin Sodium/Sulbactam 100 mls @ 200 mls/hr 01/19/19 18:00 01/20/19 09: 16 Sodium 1.5 gm/ Sodium Chloride IVPB 200 mls/hr Q8H-IV TAYLER Administration Lactated Ringer's 1,000 ml in 1,000 mls @ 125 mls/hr 01/20/19 08:00 Lactated Ringers Solution IV ASDIR TAYLER Insulin Aspart 1 vial 01/19/19 16:30 01/20/19 06:18 Novolog Vial Sliding Scale - SQ Not Given BIDAC TAYLER Protocol Morphine Sulfate 2 mg 01/18/19 10:09 01/20/19 08:33 Morphine Sulfate IVPUSH 2 mg Q4H PRN Administration PAIN LEVEL 6-10 Valsartan 160 mg 01/19/19 10:00 01/20/19 09:55 Diovan - PO Not Given DAILY [facility] Laboratory Results - last 24 hr 01/19/19 01/19/19 01/20/19 12:31 17:01 06:17 WBC RBC Hgb Hct MCV MCH MCHC RDW Plt Count MPV Absolute Neuts (auto) Neutrophils % Lymphocytes % Monocytes % Eosinophils % Basophils % Nucleated RBC % Sodium Potassium Chloride Carbon Dioxide Anion Gap BUN Creatinine Est GFR (CKD-EPI)AfAm Est GFR (CKD-EPI)NonAf POC Glucometer 101 121 87 Random Glucose Hemoglobin A1c % Calcium Total Bilirubin Direct Bilirubin AST ALT Alkaline Phosphatase C-Reactive Protein Total Protein Albumin Total Amylase Lipase 01/20/19 01/20/19 01/20/19 07:55 07:55 07:55 WBC RBC Hgb Hct MCV MCH MCHC RDW Plt Count MPV Absolute Neuts (auto) Neutrophils % Lymphocytes % Monocytes % Eosinophils % Basophils % Nucleated RBC % Sodium 138 Potassium 3.2 L Chloride 104 Carbon Dioxide 30 Anion Gap 4 L BUN 13.2 Creatinine 0.9 Est GFR (CKD-EPI)AfAm 102.79 Est GFR (CKD-EPI)NonAf 88.69 POC Glucometer Random Glucose 87 Hemoglobin A1c % 5.4 Calcium 8.0 L Total Bilirubin 0.7 Direct Bilirubin 0.3 H AST 25 ALT 32 Alkaline Phosphatase 82 C-Reactive Protein 11.5 H Total Protein 5.9 L Albumin 3.0 L Total Amylase > 650 H Lipase > 1500 H 01/20/19 01/20/19 07:55 07:55 WBC 11.8 H RBC 4.16 Hgb 12.8 Hct 37.4 MCV 90.0 MCH 30.9 MCHC 34.3 RDW 13.5 Plt Count 177 MPV 8.3 Absolute Neuts (auto) 9.9 H Neutrophils % 83.6 H Lymphocytes % 9.3 Monocytes % 5.6 Eosinophils % 1.4 Basophils % 0.1 Nucleated RBC % 0 Sodium Potassium Chloride Carbon Dioxide Anion Gap BUN Creatinine Est GFR (CKD-EPI)AfAm Est GFR (CKD-EPI)NonAf POC Glucometer Random Glucose Hemoglobin A1c % Calcium Total Bilirubin 0.8 Direct Bilirubin 0.2 AST 24 ALT 32 Alkaline Phosphatase 82 C-Reactive Protein Total Protein 5.9 L Albumin 3.0 L Total Amylase Lipase S1 S2 RRR Lungs clear Abd- soft, tender right upper quadrant, ND No edema PLAN NPO IV fluids Replace potassium iv antibiotics LFT not elevated WBC trending down noted elevated pancreatic enzymes post ERCP-- pt clinically does not appear to have pancreatitis spoke with GI He will be going for cholecystectomy today needs Actigal upon discharge from the hospital Problem List - Problems (1) Choledocholithiasis with cholecystitis Code(s): K80.40 - CALCULUS OF BILE DUCT W CHOLECYSTITIS, UNSP, W/O OBSTRUCTION (2) Diabetes mellitus Code(s): E11.9 - TYPE 2 DIABETES MELLITUS WITHOUT COMPLICATIONS (3) Hypertension Code(s): I10 - ESSENTIAL (PRIMARY) HYPERTENSION (4) RUQ pain Code(s): R10.11 - RIGHT UPPER QUADRANT PAIN
[2019-01-20] MEDS ORDERED: PROPOFOL 20 ML ONE ×3 (11:49→14:28)
[2019-01-20] MEDS ORDERED: ROCURONIUM BROMIDE 50 MG/5 ML SYRINGE ONE (11:49)
--- NOTE | 2019-01-20 13:20 | PN ---
Progress Note (short form) - Note Progress Note: 68yo M s/p ERCP with spincterotomy, stone extraction, and stent placement Problem List - Problems (1) Choledocholithiasis with cholecystitis Code(s): K80.40 - CALCULUS OF BILE DUCT W CHOLECYSTITIS, UNSP, W/O OBSTRUCTION
[2019-01-20] MEDS ORDERED: ONDANSETRON 4 MG/2 ML VIAL IVPUSH PRN ×4 (14:00→16:41)
[2019-01-20] MEDS ORDERED: MIDAZOLAM HCL 2 MG/2 ML SINGLE DOSE VIAL ONE (14:28)
[2019-01-20] MEDS ORDERED: fentaNYL CITRATE 250 MCG/5 ML VIAL ONE (14:28)
[2019-01-20] MEDS ORDERED: LIDOCAINE HCL/PF 2% SDV 5ML VIAL ONE (14:30)
[2019-01-20] MEDS ORDERED: BUPIVACAINE HCL/PF 0.5% (5 MG/ML) 30 ML VIAL IJ ONE (14:42)
[2019-01-20] MEDS ORDERED: SILDENAFIL CITRATE 100 MG PO PRN ×2 (14:43→16:41)
[2019-01-20] MEDS ORDERED: morphine SULFATE 4 MG/ML VIAL IVPB PRN ×2 (14:44→16:38)
[2019-01-20] MEDS ORDERED: oxyCODONE HCL 5 MG TABLET PO PRN ×2 (14:44→16:36)
[2019-01-20] MEDS ORDERED: ACETAMINOPHEN 325 MG TABLET (FP) PO PRN (14:44)
[2019-01-20] MEDS ORDERED: D5-1/2NS+20 MEQ KCL - 20 MEQ/1,000 ML INFUS.BAG IV SCH (14:45)
--- NOTE | 2019-01-20 14:52 | OP ---
Operative Note - Note: Operative Date: 01/20/19 Pre-Operative Diagnosis: acute cholecystitis, cholelithiasis, choledocholithiasis Operation: laparoscopic cholecystectomy, lavage Findings: thickened, distended, inflamed gb with body and fundus completely intrahepatic Post-Operative Diagnosis: Same as Pre-op Surgeon: Asa Rosario Back Tender Pulp Drier: Karina Mcadams Anesthesiologist/ILLUSIONIST: Humberto Akbar Anesthesia: General Specimens Removed: gb Estimated Blood Loss (mls): 200 Drains & Tubes with Location: [facility] Operative Report Dictated: Yes
[2019-01-20] MEDS ORDERED: GLYCOPYRROLATE 0.2 MG/1 ML VIAL ONE (15:55)
[2019-01-20] MEDS ORDERED: NEOSTIGMINE METHYLSULFATE 0.5 MG/1 ML - 10 ML MDV ONE (15:55)
[2019-01-20] MEDS ORDERED: metFORMIN HCL 500 MG TABLET (FP) PO SCH (16:30)
[2019-01-20] MEDS ORDERED: sitaGLIPtin PHOSPHATE 50 MG TABLET PO SCH (16:30)
--- NOTE | 2019-01-20 16:44 | SURG ---
Surgery Director Client Services Note Director Client Services: Karina Mcadams PA-C Date of Service: 01/20/19 Diagnosis: acute cholecystitis, cholelithiasis, choledocholithiasis Procedure: laparoscopic cholecystectomy, lavage I was present for the entirety of the operative procedure. For further detail, please refer to operative report. Visit type - Case Type Case Type: Scheduled - Emergency Emergency Visit: Yes ED Registration Date: 01/17/19 Care time: The patient presented to the Emergency Department on the above date and was hospitalized for further evaluation of their emergent condition. - New patient This patient is new to me today: Yes Date on this admission: 01/20/19
--- NOTE | 2019-01-20 17:39 | OP ---
DATE OF OPERATION: 01/20/2019 PREOPERATIVE DIAGNOSIS: Acute cholecystitis, cholelithiasis, choledocholithiasis. POSTOPERATIVE DIAGNOSIS: Acute cholecystitis, cholelithiasis, choledocholithiasis. OPERATION: Laparoscopic cholecystectomy, lavage. SURGEON: Asa Rosario DO FIRE PREVENTION FORESTER: CONI Ortega ANESTHESIOLOGIST: Humberto Akbar MD (general) INTRAOPERATIVE FINDINGS: Chronically thickened and acutely inflamed gallbladder where the body and fundus were completely intrahepatic, completely surrounded by liver tissue with a generous cystic duct. SPECIMEN: Gallbladder. DRAIN: Haider-Cardenas drain in the gallbladder fossa. BLOOD LOSS: Approximately 200 mL. BRIEF HISTORY: This is a 68-year-old male who presented to [facility] with signs and symptoms of acute cholecystitis. He was also noted to incidentally have choledocholithiasis on CAT scan. He underwent an ERCP. Had multiple stones extracted, however, a stent was left as 1 stone was unable to be retrieved at this attempt. He presents now for cholecystectomy. He had a chemical post ERCP amylasemia but did not have clinical pancreatitis. PROCEDURE: The patient was placed in a supine position. After general anesthesia was initiated, the abdomen was prepped and draped in sterile fashion. The patient was on Rocephin as well as Flagyl. Next, a transverse incision was made supraumbilical with scalpel used to go through skin, subcutaneous tissue. The fascia was lifted with Chris clamp. Veress needle was inserted, and pneumoperitoneum was created. Next, an 11-mm trocar was placed followed by insertion of a 10-mm 0- degree laparoscope. An additional 11-mm trocar was placed subxiphoid, and two 5-mm trocars were placed right upper quadrant. Attention was turned to the right upper quadrant. There were omental adhesions to the liver. These were taken down with the LigaSure device. The fundus and at least 1/2 the body of the gallbladder was covered by liver tissue. Had the appearance of a hepatic cyst but was actually gallbladder beneath the gallbladder tissue. Inferiorly, the lower body and infundibulum of the gallbladder was pink, extra hepatic, and very thickened. This was grasped with a tooth grasper. Lateral attachments of the body and infundibulum were taken off with a LigaSure device. Medial attachments were dissected carefully. The entire infundibulum was dissected off of the posterior liver bed showing only 2 structures entering the infundibulum, a generous cystic duct and a small cystic artery. The cystic artery was divided using LigaSure device. The cystic duct, after the critical view was obtained, was divided using a Multifire vascular load stapler in 1 firing. The capsule of liver tissue, which was surrounding the upper gallbladder, was divided using LigaSure device exposing the body and fundus of the gallbladder. This was dissected mostly bluntly from the gallbladder fossa. The gallbladder was then placed in a specimen bag, removed through the infraumbilical trocar site. Significant fascial dilatation and skin lengthening was required in order to deliver a chronically thickened gallbladder with such large stones. At this point, a vigorous lavage was done. There was oozing from the liver bed because of the requirement to divide the liver to get to the body and fundus of the gallbladder and because of the blunt dissection, which was required due to visualization. Therefore, a combination of hemostasis and FloSeal was required to get adequate hemostasis. A Haider- Cardenas drain was placed in the gallbladder fossa. The return was serosanguinous with no active bleeding. At this point, trocars were removed under direct visualization as pneumoperitoneum was released. No bleeding was noted. Next, the fascia of the supraumbilical as well as the subxiphoid trocar sites were closed with multiple, interrupted 3-0 Vicryl sutures. Three skin incisions were closed with elier and Dermabond, and the Haider-Cardenas drain was secured with a silk drain stitch at the lateral trocar site. Overall, the patient tolerated the procedure well. There were no complications. He will continue on intravenous antibiotic. Would start on a liquid diet and would likely require 2-3 days of inpatient stay before being able to be discharged due to the difficulty of the dissection and the inflammatory nature of his gallbladder. DO TYRA FLORENCE/[id number] MTDEmanuel
[2019-01-20] MEDS: LACTATED RINGERS SOLUTION 1,000 ML/1,000 ML INFUS.BAG IV SCH (18:09)
[2019-01-20] MEDS: ATORVASTATIN CA 20 MG TABLET (FP) PO SCH (21:13)
[2019-01-20] MEDS: oxyCODONE HCL 5 MG TABLET PO PRN (21:16)
[2019-01-20] MEDS ORDERED: PATIENT'S OWN MEDICATION (NON-FORMULARY) (Sitagliptin Phos/Metformin Hcl [Janumet 50-1,000 PO SCH (22:00)
[2019-01-20] MEDS ORDERED: ATORVASTATIN CA 20 MG TABLET (FP) PO SCH (22:00)
[2019-01-21] MEDS: oxyCODONE HCL 5 MG TABLET PO PRN ×4 (02:10→22:14)
[2019-01-21] MEDS ORDERED: SODIUM CHLORIDE 100 ML IVPB ONE ×3 (02:41→17:42)
[2019-01-21] MEDS ORDERED: AMPICILLIN NA/SULBACTAM NA 1.5 GM VIAL ONE ×3 (02:41→17:42)
[2019-01-21] MEDS: AMPICILLIN NA/SULBACTAM NA 1.5 GM in SODIUM CHLORIDE 100 ML IVPB SCH ×3 (02:46→17:54)
[2019-01-21] MEDS: INSULIN SLIDING SCALE (NOVOLOG) 1 VIAL SQ SCH ×2 (06:16→17:04)
[2019-01-21] MEDS: LACTATED RINGERS SOLUTION 1,000 ML/1,000 ML INFUS.BAG IV SCH (06:17)
[2019-01-21] MEDS ORDERED: sitaGLIPtin PHOSPHATE 50 MG TABLET PO SCH (07:00)
[2019-01-21] MEDS ORDERED: metFORMIN HCL 500 MG TABLET (FP) PO SCH (07:00)
[2019-01-21 08:21] LABS: BASO % 0.2 % (0-2.0); EOS % 1.8 % (0-4.5); HEMATOCRIT 37.1 % (35.4-49); HEMOGLOBIN 12.8 GM/dL (11.7-16.9); LYMPH % 18.7 % (8-40); MCH 30.9 pg (25.7-33.7); MCHC 34.4 g/dl (32.0-35.9); MEAN CELL VOLUME 89.7 fl (80-96); MONO % 9.5 % (3.8-10.2); NEUT % 69.8 % (42.8-82.8); PLATELET COUNT 225 K/MM3 (134-434); RBC 4.13 M/mm3 (4.00-5.60); RDW 13.4 % (11.9-15.9)
[2019-01-21 08:41] LABS: BILIRUBIN,TOTAL 0.9 mg/dL (0.2-1); CALCIUM 7.9 mg/dL (8.5-10.1); CREATININE 0.9 mg/dL (0.55-1.3); POTASSIUM 3.6 mmol/L (3.5-5.1)
--- NOTE | 2019-01-21 09:39 | PN ---
Progress Note (short form) - Note Progress Note: POD 1, s/p laparoscopic cholecystectomy, lavage for acute cholecystitis, cholelithiasis, choledocholithiasis Pt seen and examined. Reports he is doing well, pain has improved slightly since yesterday. No issues overnight. Has been oob ambulating with no issues. Voiding, no flatus yet. Did not have anything NPo overnight. Denies cp/sob, n/v/ d. Vital Signs Temp 99.1 F 01/21/19 05:44 Pulse 93 H 01/21/19 05:44 Resp 20 01/21/19 05:44 BP 164/96 01/21/19 05:44 Pulse Ox 96 01/20/19 21:00 Intake & Output 01/20/19 01/20/19 01/21/19 11:59 23:59 11:59 Intake Total 2000 1400 1800 Output Total 600 410 670 Balance 5248 178 9564 Intake: IV 1800 1300 1500 LACTATED RINGERS SOLUTION 1500 1,000 ml In 1,000 ml @ 125 mls/hr IV ASDIR TAYLER Rx#:[id number] LACTATED RINGERS SOLUTION 1800 1,000 ml In 1,000 ml @ 150 mls/hr IV ASDIR TAYLER Rx#:[id number] IVPB 200 100 300 Oral 0 Output: Drainage 210 120 Abdomen 60 120 Urine 600 550 Void 600 550 Estimated Blood Loss 200 Other: Voiding Method Urinal Urinal # Unmeasured Voids Void 2 100 Bowel Movement No No CBC, BMP 01/21/19 07:30 01/21/19 07:30 Gen: awake, alert, nad, sitting at edge of bed Resp: Unlabored on RA Abdo: soft, minimall ttp in ruq and at incision sites. Drain in place with mild serosanguinous drainage in reservoir. Gauze saturated, dressing changed drain in good position with suture intact and surrounding skin intact without erythema. Tubing stripped. A/P: 68 y/o male with PMHx HLD, DM, HTN, AAA (3.5 cm), extensive ETOH and smoking, lumbar stenosis admitted 01/17 with abdominal pain found to have acute cholecystitis, cholelithiasis, choledocholithiasis now s/p ERCP with 4 stones removed from distal CBD/stent placement with GI on 01/19, now POD 1, s/p laparoscopic cholecystectomy. Doing well post op. Afebrile ovenight. Leukocytosis trended down to 9k HUNTER output 120ml overnight -Amylase/lipase pending -Keep Hunter in place, monitor and record output -Pain control -Continue abx per ID d/w attending Dr Rosario -Update: diet advanced to clears Plan f/r d/c tomorrow on Augmentin
[2019-01-21] MEDS ORDERED: LISINOPRIL 20 MG TABLET (FP) PO SCH (10:00)
[2019-01-21] MEDS ORDERED: VALSARTAN 160 MG TABLET (UD) PO SCH (10:00)
[2019-01-21] MEDS ORDERED: PANTOPRAZOLE SODIUM 40 MG VIAL IVPUSH SCH (10:00)
[2019-01-21] MEDS ORDERED: ENOXAPARIN NA (PORCINE) 40 MG/0.4 ML DISP.SYRIN SQ SCH (10:00)
[2019-01-21] MEDS ORDERED: HYDROCHLOROTHIAZIDE 12.5 MG CAPSULE (FP) PO SCH (10:00)
[2019-01-21] MEDS ORDERED: PATIENT'S OWN MEDICATION (NON-FORMULARY) (Linaclotide [Linzess] 145 MCG) PO SCH ×2 (10:00)
[2019-01-21] MEDS ORDERED: amLODIPine BESYLATE 10 MG TABLET (FP) PO SCH (10:00)
[2019-01-21] MEDS: HYDROCHLOROTHIAZIDE 12.5 MG CAPSULE (FP) PO SCH (10:07)
[2019-01-21] MEDS: amLODIPine BESYLATE 10 MG TABLET (FP) PO SCH (10:07)
[2019-01-21] MEDS: LISINOPRIL 20 MG TABLET (FP) PO SCH (10:07)
[2019-01-21] MEDS: ENOXAPARIN NA (PORCINE) 40 MG/0.4 ML DISP.SYRIN SQ SCH (10:07)
[2019-01-21] MEDS: VALSARTAN 160 MG TABLET (UD) PO SCH (10:12)
[2019-01-21] MEDS: PANTOPRAZOLE SODIUM 40 MG VIAL IVPUSH SCH (10:12)
--- NOTE | 2019-01-21 10:15 | PN ---
Progress Note, Physician History of Present Illness: pt seen/ examined chart reviewed sitting in chair denies pain feels better taking liquids passing gas pod #1 -- Lap harvey - Current Medication List Current Medications: Active Medications Acetaminophen (Tylenol -) 650 mg PO Q4H PRN PRN Reason: FEVER Amlodipine Besylate (Norvasc -) 10 mg PO DAILY [facility] Last Admin: 01/21/19 10:07 Dose: 10 mg Atorvastatin Calcium (Lipitor -) 20 mg PO HS [facility] Last Admin: 01/20/19 21:13 Dose: 20 mg Enoxaparin Sodium (Lovenox -) 40 mg SQ DAILY [facility] Last Admin: 01/21/19 10:07 Dose: 40 mg Fentanyl (Sublimaze Injection -) 50 mcg IVPUSH [id number] PRN PRN Reason: PAIN-PACU ORDER X 4 DOSES ONLY Last Admin: 01/20/19 17:15 Dose: 50 mcg Hydrochlorothiazide (Hctz -) 12.5 mg PO DAILY [facility] Last Admin: 01/21/19 10:07 Dose: 12.5 mg Ampicillin Sodium/Sulbactam (Sodium 1.5 gm/ Sodium Chloride) 100 mls @ 200 mls/ hr IVPB Q8H-IV [facility] Last Admin: 01/21/19 10:07 Dose: 200 mls/hr Metronidazole (Flagyl 500mg Premixed Ivpb -) 500 mg in 100 mls @ 100 mls/hr IVPB Q8H-IV [facility] Last Admin: 01/21/19 10:08 Dose: 100 mls/hr Lactated Ringer's (Lactated Ringers Solution) 1,000 ml in 1,000 mls @ 125 mls/ hr IV ASDIR [facility] Last Admin: 01/21/19 06:17 Dose: 125 mls/hr Insulin Aspart (Novolog Vial Sliding Scale -) 1 vial SQ BIDAC [facility]; Protocol Last Admin: 01/21/19 06:16 Dose: Not Given Lisinopril (Prinivil) 20 mg PO DAILY [facility] Last Admin: 01/21/19 10:07 Dose: 20 mg Morphine Sulfate (Morphine Sulfate) 4 mg IVPB Q4H PRN PRN Reason: breakthrough pain Last Admin: 01/21/19 05:26 Dose: 4 mg Non-Formulary Medication (Sildenafil Citrate [Sildenafil Citrate]) 100 mg PO PRN PRN PRN Reason: erectile disfunction Ondansetron HCl (Zofran Injection) 4 mg IVPUSH Q6H PRN PRN Reason: NAUSEA AND/OR VOMITING Ondansetron HCl (Zofran Injection) 4 mg IVPUSH Q6H PRN PRN Reason: NAUSEA Oxycodone HCl (Roxicodone -) 5 mg PO Q4H PRN PRN Reason: PAIN LEVEL 1-5 Oxycodone HCl (Roxicodone -) 10 mg PO Q4H PRN PRN Reason: PAIN LEVEL 6-10 Last Admin: 01/21/19 06:24 Dose: 10 mg Pantoprazole Sodium (Protonix Iv) 40 mg IVPUSH DAILY [facility] Last Admin: 01/21/19 10:12 Dose: 40 mg Valsartan (Diovan -) 160 mg PO DAILY [facility] Last Admin: 01/21/19 10:12 Dose: 160 mg - Objective Vital Signs: Vital Signs Temperature 99.1 F 01/21/19 05:44 Pulse Rate 93 H 01/21/19 05:44 Respiratory Rate 20 01/21/19 05:44 Blood Pressure 164/96 01/21/19 05:44 O2 Sat by Pulse Oximetry (%) 96 01/20/19 21:00 Constitutional: Yes: No Distress, Calm Eyes: Yes: Conjunctiva Clear Neck: Yes: Supple Cardiovascular: Yes: Regular Rate and Rhythm Respiratory: Yes: CTA Bilaterally Gastrointestinal: Yes: Soft, Other (drain +/ bs +) Edema: No Neurological: Yes: Alert Labs: CBC, BMP 01/21/19 07:30 01/21/19 07:30 INR, PTT INR 1.18 (0.83-1.09) H 01/19/19 06:50 Problem List - Problems (1) Choledocholithiasis with cholecystitis Code(s): K80.40 - CALCULUS OF BILE DUCT W CHOLECYSTITIS, UNSP, W/O OBSTRUCTION (2) Diabetes mellitus Code(s): E11.9 - TYPE 2 DIABETES MELLITUS WITHOUT COMPLICATIONS (3) Hypertension Code(s): I10 - ESSENTIAL (PRIMARY) HYPERTENSION Assessment/Plan Clinically stable continue present care abx diet as tolerated oob=- chair f/u labs encourged to do spirometry hold po diabetic meds will follow
--- NOTE | 2019-01-21 11:04 | PN ---
Progress Note (short form) - Note Progress Note: surgery pt seen and examined. feels well. no pain. ambulating. voiding. afebrile abd- softly distended, nt, incisions clean, sampson sero-sanguinous Laboratory Tests 01/21/19 07:30 WBC 9.0 Hgb 12.8 A/P 1) Pod#1- full liquids, stop ivf, cont sampson 2) prophylaxis- lovenox, protonix,oob, spirometer 3) acute cholecystitis- cont iv abx, follow path 4) choledocholithiasis- per gi
[2019-01-21] MEDS: ACETAMINOPHEN 325 MG TABLET (FP) PO PRN ×2 (15:59→22:15)
[2019-01-21] MEDS: ATORVASTATIN CA 20 MG TABLET (FP) PO SCH (22:16)
[2019-01-22] MEDS ORDERED: AMPICILLIN NA/SULBACTAM NA 1.5 GM VIAL ONE ×3 (02:37→09:46)
[2019-01-22] MEDS ORDERED: SODIUM CHLORIDE 100 ML IVPB ONE ×3 (02:37→09:46)
[2019-01-22] MEDS: AMPICILLIN NA/SULBACTAM NA 1.5 GM in SODIUM CHLORIDE 100 ML IVPB SCH ×2 (02:46→11:56)
[2019-01-22] MEDS: INSULIN SLIDING SCALE (NOVOLOG) 1 VIAL SQ SCH (06:02)
[2019-01-22 08:25] LABS: BASO % 0.3 % (0-2.0); EOS % 2.4 % (0-4.5); HEMATOCRIT 36.4 % (35.4-49); HEMOGLOBIN 12.7 GM/dL (11.7-16.9); LYMPH % 15.6 % (8-40); MCHC 34.9 g/dl (32.0-35.9); MEAN PLT VOLUME 7.9 fl (7.5-11.1); MONO % 8.2 % (3.8-10.2); NEUT % 73.5 % (42.8-82.8); PLATELET COUNT 229 K/MM3 (134-434); RBC 4.09 M/mm3 (4.00-5.60); RDW 13.5 % (11.9-15.9); WHITE BLOOD COUNT 7.5 K/mm3 (4.0-10.0)
[2019-01-22 08:37] LABS: ALBUMIN 2.8 g/dl (3.4-5.0); BILIRUBIN,TOTAL 0.6 mg/dL (0.2-1); BLOOD UREA NITROGEN 9.2 mg/dL (7-18); CALCIUM 8.1 mg/dL (8.5-10.1); CREATININE 0.9 mg/dL (0.55-1.3); POTASSIUM 3.1 mmol/L (3.5-5.1); TOT PROT 5.6 g/dl (6.4-8.2)
[2019-01-22] MEDS: VALSARTAN 160 MG TABLET (UD) PO SCH (10:01)
[2019-01-22] MEDS: amLODIPine BESYLATE 10 MG TABLET (FP) PO SCH (10:01)
[2019-01-22] MEDS: HYDROCHLOROTHIAZIDE 12.5 MG CAPSULE (FP) PO SCH (10:01)
[2019-01-22] MEDS: LISINOPRIL 20 MG TABLET (FP) PO SCH (10:01)
[2019-01-22] MEDS: ENOXAPARIN NA (PORCINE) 40 MG/0.4 ML DISP.SYRIN SQ SCH (10:06)
[2019-01-22] MEDS: PANTOPRAZOLE SODIUM 40 MG VIAL IVPUSH SCH (10:08)
--- NOTE | 2019-01-22 11:15 | DS ---
Physical Examination Vital Signs: Vital Signs Temperature 98.7 F 01/22/19 07:15 Pulse Rate 96 H 01/22/19 07:15 Respiratory Rate 21 H 01/22/19 07:15 Blood Pressure 145/95 01/22/19 07:15 O2 Sat by Pulse Oximetry (%) 96 01/21/19 09:00 Constitutional: Yes: No Distress Cardiovascular: Yes: Regular Rate and Rhythm Gastrointestinal: Yes: Normal Bowel Sounds, Soft. No: Tenderness Edema: No Labs: CBC, BMP 01/22/19 07:08 01/22/19 07:08 Discharge Summary Problems reviewed: Yes Reason For Visit: RIGHT UPPER QUADRANT ABDOMINAL PAIN Current Active Problems Choledocholithiasis with cholecystitis (Acute) Diabetes mellitus (Acute) Hypertension (Acute) RUQ pain (Acute) Hospital Course: admitted for acute cholecystitis-- found to have choledocholithiasis was on IV antibiotics and fluids He underwent ERCP, for stones removed, , stent placed He underwent laparoscopic cholecystectomy Patient doing well postop Tolerating diet Stable for discharge home, follow with GI in 3 months to remove stent-- . He should be on Actigall until this time Condition: Stable - Instructions Diet, Activity, Other Instructions: Dr. Partida Discharge Instructions Dear CRISTEL SAHU, Post Operative Instructions Physical activity Resume your normal everyday activity as tolerated no heavy lifting or exercise until seen by your surgeon. You may walk unlimited amounts of and climb stairs. You may resume driving the car when you feel safe and comfortable behind the wheel and are no longer taking narcotics. Wound care Keep incisions clean and dry. The elier will be removed by your surgeon in the office. Diet There are no dietary restrictions. Eat healthy, high-fiber foods. Drink 6 to 8 glasses of liquid each day. This will assist in keeping your bowels are regular. Pain management You may take Tylenol or acetaminophen or Ibuprofen (for example, Motrin, Advil etc.) Any pain prescription medication ordered should be taken as prescribed for moderate to severe pain. Call Dr. Rosario for any of the following: Severe pain not relieved by medication Fever of 101 or higher Excessive bleeding or drainage on dressing Inability to urinate If you experience any chest pain or shortness of breath please seek emergency treatment immediately. Call Dr Rosario's office to confirm your follow up visit. Referrals: Bismark Padilla MD [Staff Physician] - (3 months -- for repeat ERCP , stent removal ) Asa Rosario MD [Staff Physician] - Disposition: HOME - Home Medications Comprehensive Discharge Medication List: Ambulatory Orders Atorvastatin Ca [Lipitor -] 20 mg PO HS tablet 09/10/13 Sitagliptin Phos/Metformin HCl [Janumet 50-1,000 Mg Tablet] 1 each PO BID tablet 09/10/13 Amlodipine Besylate/Benazepril [Amlodipine-Benazepril 10-20 mg] 1 each PO DAILY 01/17/19 Linaclotide [Linzess] 145 mcg PO DAILY 01/17/19 Sildenafil Citrate 100 mg PO PRN PRN 01/17/19 Valsartan/Hydrochlorothiazide [Valsartan-Hctz 160-12.5 mg Tab] 1 each PO DAILY 01/17/19 Ursodiol [Actigal] 300 mg PO BID #180 capsule 01/20/19
[2019-01-22] MEDS ORDERED: VALSARTAN 160 MG TABLET (UD) PO ONE (11:33)
--- NOTE | 2019-01-22 11:37 | PN ---
Progress Note (short form) - Note Progress Note: surgery pt seen and examined. feels well. tolerating liquids. no pain. afebrile abd- soft, nt. mild distenison, sampson serous, incisions clean Plan- remove sampson. surgically stable for d/c on 5 days augmentin. f/u in 2 weeks. ok to shower. advance diet at home. no lifting. no narcotics.
[2019-01-22 11:50] VITALS: TEMP 98.2
[2019-01-22] MEDS ORDERED: POTASSIUM CHLORIDE TABS 20 MEQ TABLET.ER (FP) PO ONE (12:00)
[2019-01-22 13:15] VITALS: BP 148/102; PULSE 101
--- NOTE | 2019-01-24 17:15 | PATH ---
Surgical Pathology Report Patient Name: CRISTEL SAHU [facility]. Rec. #: [id number] /Age/Gender: 1950 (Age: 68) / M Account: [id number] Location: [address] [place] [address]/[facility] Taken: 01/20/2019 Received: 01/21/2019 Reported: 01/24/2019 Physicians: Asa Rosario M.D. Specimen(s) Received GALLBLADDER Clinical History Right upper quadrant abdominal pain, acute cholecystitis Final Diagnosis GALLBLADDER, LAPAROSCOPIC CHOLECYSTECTOMY: ACUTE GANGRENOUS AND CHRONIC CHOLECYSTITIS WITH CHOLELITHIASIS. SCANTY ADHERENT LIVER TISSUE WITH MILD ACUTE AND CHRONIC INFLAMMATION AND REACTIVE CHANGES. Electronically Signed Mecca Greer M.D. Gross Description Received in formalin, labeled "gallbladder," is a 10.0 x 3.7 x 3.5 cm. gallbladder with a 0.2 cm. in length portion of stapled cystic duct attached. The outer surface is jason-brown with a focal defect and varies from smooth to shaggy. The lumen contains red blood as well as multiple irregular fragmented choleliths ranging from 0.1-2.6 cm in greatest dimension. The mucosa is hyperemic and focally gangrenous. The wall of the gallbladder measures up to 0.9 cm. in thickness. [employer] sections are submitted in one cassette. 01/21/[address] [facility]01/21/2019
== END 2019-01-22 13:43 | disposition home or self-care (01) | DRG 419 ==
LOC: JER 06:39 → JERBED 15:58 → J6S 17:16
PROVIDERS: ADMIT Internal Medicine; ATTEND Internal Medicine
PROC: 0FC98ZZ Extirpation of Matter from Common Bile Duct, Via Natural or Artificial Opening Endoscopic (ICD-10-PCS; 2019-01-19)
PROC: BF10YZZ Fluoroscopy of Bile Ducts using Other Contrast (ICD-10-PCS; 2019-01-19)
PROC: 0F798DZ Dilation of Common Bile Duct with Intraluminal Device, Via Natural or Artificial Opening Endoscopic (ICD-10-PCS; 2019-01-19)
PROC: 0FT44ZZ Resection of Gallbladder, Percutaneous Endoscopic Approach (ICD-10-PCS; principal; 2019-01-20 14:00)
DX: K80.12 Calculus of gallbladder with acute and chronic cholecystitis without obstruction (principal); E11.9 Type 2 diabetes mellitus without complications; I10 Essential (primary) hypertension; R10.11 Right upper quadrant pain; E78.5 Hyperlipidemia, unspecified; M48.061 Spinal stenosis, lumbar region without neurogenic claudication; D72.829 Elevated white blood cell count, unspecified; R00.0 Tachycardia, unspecified
CPT/HCPCS: 36415; 71045-TC-FY; 74176-TC; 76000-TC-FY; 76705-TC; 78226-TC; 80053; 80076; 81003; 82150; 82248; 82550; 82553; 82962; 83036; 83690; 84484; 85025; 85610; 86140; 87086; 88304-TC; 93005; 93010; 94760; 99284-25; A9537; J0131

== ENCOUNTER 2023-02-23 04:12 | Day surgery (SDC) | payer OTHER, BC ==
[2023-02-19 14:37] VITALS: BMI 27.5
[2023-02-23 09:55] VITALS: RESP 18
[2023-02-23] MEDS ORDERED: MIDAZOLAM HCL 2 MG/2 ML SINGLE DOSE VIAL ONE (11:05)
[2023-02-23] MEDS ORDERED: ONDANSETRON 4 MG/2 ML VIAL ONE (11:05)
[2023-02-23] MEDS ORDERED: FENTANYL CITRATE/PF 50 MCG/ML VIAL ONE (11:05)
[2023-02-23 12:26] VITALS: BP 127/80; PULSE 68; TEMP 97.5
== END 2023-02-23 12:32 | disposition home or self-care (01) ==
LOC: JASU-SURG 04:12
PROVIDERS: ATTEND Urology
PROC: 0TF4XZZ Fragmentation in Left Kidney Pelvis, External Approach (ICD-10-PCS; principal; 2023-02-23 11:30)
DX: N20.0 Calculus of kidney (principal)
CPT/HCPCS: 82962